=== PATIENT | female | born 1955 | race Caucasian/White ===

== ENCOUNTER 2018-08-08 16:04 | Emergency (ER) | payer OTHER ==
[~2018-08-08] VITALS: Ht 167.6 cm; Wt 80.3 kg
[~2018-08-08 16:04] MED LIST: LEVO75TA5 PO; STOMACH MED PO
[2018-08-08 16:07] VITALS: Ht 167.6 cm; Wt 80.3 kg
--- NOTE | 2018-08-08 19:44 | ERD ---
ER Documentation Chief Complaint Chief Complaint Sent from for evaluation back pain, CP and SOB r/o Pulmonary Embolus HPI This is a 63-year-old woman complaining of sharp fingertip sized left upper back pain radiating to the left anterior chest beginning this morning it has been intermittent throughout the day although she has had these symptoms intermittently for the last 3 days. She denies shortness of breath, no calf or leg swelling, no history of blood clots. Patient denies abdominal pain, no headache or blurry vision, no vomiting or diarrhea ROS All systems reviewed and are negative except as per history of present illness. Medications Home Meds Active Scripts Cyclobenzaprine Hcl* (Cyclobenzaprine Hcl*) 10 Mg Tablet, 10 MG PO TID PRN for MUSCLE SPASMS, #15 TAB Prov:GELA MCDONNELL MD 08/08/18 Cyclobenzaprine Hcl* (Cyclobenzaprine Hcl*) 10 Mg Tablet, 10 MG PO TID, #15 TAB Prov:GELA MCDONNELL MD 08/08/18 Naproxen* (Naprosyn*) 500 Mg Tablet, 500 MG PO BID PRN for PAIN AND/OR INFLAMMATION, #30 TAB Prov:GELA MCDONNELL MD 08/08/18 Reported Medications Vitamin B Complex (Vitamin B Complex) 1 Each Capsule, 1 EACH PO DAILY, CAP 08/08/18 Levothyroxine Sodium* (Levothyroxine Sodium*) 75 Mcg Tablet, 75 MCG PO BEFORE BREAKFAST, #30 TAB 09/12/17 Discontinued Reported Medications [Stomach Med] No Conflict Check, PO AC BREAKFAST 09/23/14 Allergies Allergies: Coded Allergies: Penicillins (Unverified Allergy, Unknown, 08/08/18) PMhx/Soc Hypothyroid, diabetes noninsulin dependent. History of Surgery: Yes (, BILATERAL EAR SURGERY) Anesthesia Reaction: No Hx Neurological Disorder: No Hx Respiratory Disorders: No Hx Cardiac Disorders: No Hx Psychiatric Problems: No Hx Miscellaneous Medical Probl: No Hx Alcohol Use: No Hx Substance Use: No Hx Tobacco Use: No FmHx Family History: No diabetes Physical Exam Vitals Vital Signs Date Temp Pulse Resp B/P (MAP) Pulse Ox O2 O2 Flow FiO2 Time Delivery Rate 08/08/18 98.8 69 19 134/63 100 Room Air 19:17 (86) 08/08/18 99.0 84 20 155/67 97 16:07 (96) Physical Exam GENERAL: Well-developed, well-nourished, well-hydrated, in no apparent distress, looks nontoxic in appearance HEENT: Moist mucous membranes, pink conjunctiva, no cervical spine tenderness or step-off deformities, no goiter, no jaundice or icterus, extraocular movements intact without pain. No submandibular induration, and no pharyngeal erythema NEURO: Alert and oriented 3, cranial nerves II through XII intact bilaterally, pupils equal round reactive to light, no focal deficits or facial asymmetry, sensation intact distally Strength 5/5 in upper and lower extremities bilaterally CARDIAC: Regular rate and rhythm, no murmurs rubs or gallops LUNGS: Clear bilaterally no wheezing crackles or stridor ABDOMEN: Soft nontender, no guarding, no rigidity, no rebound, no psoas sign no obturator sign. Normoactive bowel sounds SKIN: Warm and dry to touch, no abrasions, contusions, or hematomas, no lacerations, no ecchymosis, no target lesions, and without ulcers EXTREMITIES: No clubbing cyanosis or edema, calves are bilaterally symmetrical, no Homans sign, no popliteal cord sign. Distal pulses equal and bilateral PSYCH: Normal affect without agitation or irritability Result Diagram: 08/08/18201308/08/182013 Results 24 hrs Laboratory Tests Test 08/08/18 20:14 White Blood Count 11.1 10^3/ul Red Blood Count 4.64 10^6/ul Hemoglobin 13.0 g/dl Hematocrit 40.7 % Mean Corpuscular Volume 87.7 fl Mean Corpuscular Hemoglobin 28.0 pg Mean Corpuscular Hemoglobin Concent 31.9 g/dl Red Cell Distribution Width 13.2 % Platelet Count 289 10^3/UL Mean Platelet Volume 10.3 fl Immature Granulocytes % 0.400 % Neutrophils % 46.1 % Lymphocytes % 37.2 % Monocytes % 7.8 % Eosinophils % 7.9 % Basophils % 0.6 % Nucleated Red Blood Cells % 0.0 /100WBC Immature Granulocytes # 0.040 10^3/ul Neutrophils # 5.1 10^3/ul Lymphocytes # 4.1 10^3/ul Monocytes # 0.9 10^3/ul Eosinophils # 0.9 10^3/ul Basophils # 0.1 10^3/ul Nucleated Red Blood Cells # 0.0 10^3/ul Sodium Level 140 mmol/L Potassium Level 4.0 mmol/L Chloride Level 101 mmol/L Carbon Dioxide Level 30 mmol/L Anion Gap 9 Blood Urea Nitrogen 17 mg/dl Creatinine 0.99 mg/dl Est Glomerular Filtrat Rate mL/min 57 mL/min Glucose Level 96 mg/dl Calcium Level 10.3 mg/dl Total Bilirubin 0.5 mg/dl Direct Bilirubin 0.00 mg/dl Indirect Bilirubin 0.5 mg/dl Aspartate Amino Transf (AST/SGOT) 36 IU/L Alanine Aminotransferase (ALT/SGPT) 29 IU/L Alkaline Phosphatase 75 IU/L Troponin I < 0.012 ng/ml Total Protein 9.0 g/dl Albumin 4.8 g/dl Globulin 4.20 g/dl Albumin/Globulin Ratio 1.14 Lipase 151 U/L Current Medications Medications Dose Sig/Mahendra Start Time Status Last (Trade) Ordered Route PRN Stop Time Admin Dose Reason Admin Sodium 500 ml @ Q1H STAT 08/08/18 DC 08/08/18 Chloride 500 mls/hr IV 20:08 08/08/18 20:32 21:07 Ondansetron 4 mg ONCE STAT 08/08/18 DC 08/08/18 HCl (Zofran IV 20:08 08/08/18 20:30 Inj) 20:13 40 ml ONCE STAT 08/08/18 DC 08/08/18 Miscellaneous PO 20:08 08/08/18 20:30 Medication 20:13 (Gi Cocktail (2)) Belladonna/ 2 tab ONCE STAT 08/08/18 DC 08/08/18 Phenobarbital PO 20:08 08/08/18 20:30 () 20:13 Ketorolac 15 mg ONCE STAT 08/08/18 DC 08/08/18 Tromethamine IV 20:08 08/08/18 20:30 (Toradol) 20:13 Procedures/MDM IV line was established patient was placed on licensed insurance sales agent rhythm strip revealed a sinus rhythm at about 70 bpm with upright P and T waves. Patient was afebrile EKG performed, read by me revealed a normal sinus rhythm at 69 bpm, normal axis, narrow QRS complex, no concerning ST elevations or depressions noted. I also noted mild S1Q3T3 pattern in limb leads although this does not appear pathologic in any way Chest X-ray 1V Interpreted by me: Soft Tissue: No acute abnormalities Bones: No acute abnormalities Mediastinum/Cardiac Silhouette/Lungs: No acute abnormalities I administered 500 cc normal saline IV, Toradol 15 mg IV, Zofran 4 mg IV, GI cocktail p.o. CBC and electrolytes were normal, liver function tests were normal, troponin was negative Oxygen saturation on room air is 100%, respiratory rate 16 breaths/min and comfortable. Patient's vital signs are normal and her pain has resolved. She looks well will be discharged to follow-up with PMD. Differential diagnoses considered, included but not limited to acute coronary syndrome, pulmonary embolism, aortic dissection, abdominal aortic aneurysm, sepsis, stroke, meningitis, encephalitis, pneumonia, appendicitis, cholecystitis, bowel obstruction, pyelonephritis, nephrolithiasis, cystitis, as well as metabolic, hematologic, and electrolyte abnormalities. As well as abscess, cellulitis, fractures, and dislocations. Patient feels much better at this time, and vital signs are normal, symptoms have improved. I did give strict instructions to return to the ED if symptoms continue or worsen, patient will otherwise follow-up with primary care physician. Patient understood instructions and agreed to plan. Disclaimer: Inadvertent spelling and grammatical errors are likely due to E HR/dictation software use and do not reflect on the overall quality of patient care. Also, please note that the electronic time recorded on this note does not necessarily reflect the actual time of the patient encounter. Departure Diagnosis: Primary Impression: Chest pain Chest pain type: unspecified Qualified Codes: R07.9 - Chest pain, unspecified Condition: Good GELA MCDONNELL MD August 08, 2018 19:44
[2018-08-08] MEDS ORDERED: LIDOCAINE/MYLANTA 40 ML BTL PO STA (20:08)
[2018-08-08] MEDS ORDERED: KETOROLAC 15 MG INJ IV STA (20:08)
[2018-08-08] MEDS ORDERED: ONDANSETRON 4 MG INJ IV STA (20:08)
[2018-08-08] MEDS ORDERED: BELLADONNA/PHENOBARBITAL TAB PO STA (20:08)
[2018-08-08] MEDS ORDERED: SOD CHLORIDE 0.9% 500 ML IV STA (20:08)
[2018-08-08] MEDS ORDERED: CYCL10TA7 PO (21:01)
[2018-08-08] MEDS ORDERED: NAPR-985 PO (21:01)
[2018-08-08] MEDS ORDERED: VITA1CAP PO (21:12)
[2018-08-08 21:35] VITALS: BP 121/57; PULSE 65; RESP 19
== END 2018-08-08 21:35 | disposition home or self-care (01) ==
LOC: E/R 16:04
DX: R07.9 Chest pain, unspecified (principal); E03.9 Hypothyroidism, unspecified; E11.9 Type 2 diabetes mellitus without complications
CPT/HCPCS: 36415; 71045; 80053; 83690; 84484; 85025; 93005; 96374; 96375; J1885; J2405; J7040; Z7502; Z7610

== ENCOUNTER 2018-08-23 19:49 | Emergency (ER) | payer SELFPAY ==
[~2018-08-23] VITALS: Ht 165.1 cm; Wt 82.0 kg
[~2018-08-23 19:49] MED LIST changes: +CYCL10TA7 PO; +NAPR-985 PO; -STOMACH MED PO; +VITA1CAP PO
[2018-08-23 20:11] VITALS: BP 145/72; PULSE 91; RESP 18; Ht 165.1 cm; Wt 82.0 kg
== END 2018-08-23 22:37 | disposition left against medical advice (07) ==
LOC: FTE 19:49
DX: Z53.21 Procedure and treatment not carried out due to patient leaving prior to being seen by health care provider (principal)